=== PATIENT | female | born 1985 | race Caucasian/White ===

== ENCOUNTER 2020-12-14 19:31 | Emergency (ER) | payer MEDICAID, OTHER ==
[~2020-12-14] VITALS: Ht 170.2 cm; Wt 89.9 kg
[~2020-12-14 19:31] MED LIST: CHOL400C PO; CYCL10TA2 PO; DOCO200C3 PO; HYDR-3248 PO; LORA2TAB99 PO; METO-282 PO; METO25TA91 PO
[2020-12-14 19:45] VITALS: BP 137/78
--- NOTE | 2020-12-14 20:06 | NUR ---
DC BY PROVIDER.
== END 2020-12-14 20:11 | disposition home or self-care (01) ==
LOC: ED 20:00
DX: R21 Rash and other nonspecific skin eruption (principal)
CPT/HCPCS: 99283